=== PATIENT | male | born 2000 | race Caucasian/White ===

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

== ENCOUNTER 2022-10-10 11:42 | Emergency (ER) | payer OTHER ==
[2022-10-10 11:50] VITALS: BMI 19.0
[2022-10-10] MEDS ORDERED: SODIUM CHLORIDE 0.9% 500 ML INFUS.BAG IV ONE (12:25)
[2022-10-10] MEDS ORDERED: ONDANSETRON 4 MG/2 ML VIAL IVPUSH ONE (12:26)
[2022-10-10] MEDS ORDERED: KETOROLAC TROMETHAMINE 15 MG/ML VIAL IVPUSH ONE (12:27)
[2022-10-10] MEDS ORDERED: KETOROLAC TROMETHAMINE 15 MG/ML VIAL ONE (12:38)
[2022-10-10] MEDS ORDERED: ONDANSETRON 4 MG/2 ML VIAL ONE (12:38)
[2022-10-10 12:57] LABS: HEMATOCRIT 46.9 % (35.4-49); MCHC 34.2 g/dl (32.0-35.9); MEAN CELL VOLUME 87.8 fl (80-96); MEAN PLT VOLUME 8.9 fl (7.5-11.1); PLATELET COUNT 282.6 10^3/uL (134-434); RBC 5.34 10^6/uL (4.00-5.60); RDW 13.6 % (11.9-15.9); WHITE BLOOD COUNT 6.8 10^3/uL (4.0-10.8)
[2022-10-10 12:59] LABS: EPITHELIAL CELLS RARE /hpf
[2022-10-10 13:08] LABS: ALBUMIN 4.6 g/dl (3.4-5.0); BILIRUBIN,TOTAL 0.6 mg/dl (0.2-1); BLOOD UREA NITROGEN 10.1 mg/dl (7-18); CALCIUM 9.6 mg/dl (8.5-10.1); CREATININE 0.8 mg/dl (0.6-1.3); POTASSIUM 3.3 mmol/L (3.5-5.1); SGOT/AST 12.9 U/L (15-37); SGPT/ALT 11.1 U/L (7-52); TOT PROT 7.7 g/dl (6.4-8.2)
[2022-10-10 14:59] VITALS: BP 117/70; PULSE 70; RESP 15; TEMP 98
== END 2022-10-10 15:21 | disposition home or self-care (01) ==
LOC: FER 11:42
PROC: 3E0333Z Introduction of Anti-inflammatory into Peripheral Vein, Percutaneous Approach (ICD-10-PCS; principal; 2022-10-10)
PROC: 3E033GC Introduction of Other Therapeutic Substance into Peripheral Vein, Percutaneous Approach (ICD-10-PCS; 2022-10-10)
DX: R10.32 Left lower quadrant pain (principal); R11.0 Nausea; K52.9 Noninfective gastroenteritis and colitis, unspecified
CPT/HCPCS: 36415; 74177-TC; 80053; 81003; 81015; 85027; 99285-25; Q9967

== ENCOUNTER 2023-12-11 11:54 | Emergency (ER) | payer OTHER ==
[2023-12-11 12:17] VITALS: BP 130/76; PULSE 84; RESP 18; TEMP 98.6; BMI 19.5
== END 2023-12-11 13:50 | disposition home or self-care (01) ==
LOC: FER 11:54
DX: H66.91 Otitis media, unspecified, right ear (principal); J02.9 Acute pharyngitis, unspecified; H92.01 Otalgia, right ear; R61 Generalized hyperhidrosis; R11.0 Nausea; R10.9 Unspecified abdominal pain; R06.02 Shortness of breath; Z20.822 Contact with and (suspected) exposure to COVID-19
CPT/HCPCS: 0241U-QW; 36415; 86308; 99283-25